=== PATIENT | female | born 1955 | race African-American/Black ===

== ENCOUNTER 2018-03-22 17:01 | Inpatient (IN) | payer MEDICARE ==
[~2018-03-22] VITALS: Ht 162.6 cm; Wt 194.0 kg
[~2018-03-22 17:01] MED LIST: ADVAIR DISK1 INH; ALBUTERO1; ALBUTERO1 IN; ALLOPURINOL100 MG PO; AMOXICILLIN875 MG PO; APRESOLINE25 MG/TAB PO; AUGMENTIN500TAB PO; AUGMENTIN875 MG PO; AUGMENTIN875TAB OR; AUGMENTIN875TAB PO; AVELOX400 MG PO; BENADRYL 50MG C50 MG PO; BENADRYL25 MG PO; CARDIZEM60 MG PO; CETIRIZ/PSE1 TAB PO; CIPRO500 MG OR; COLCHICINE0.6 MG PO; COLPROBENEMID500 MG PO; COMBIVENT IN; COMBIVENT INH; COMBIVENT RESPIMAT IN; DUONEB IN; FLORASTOR250 M1 PO; FLOVENT HFA44 MCG IN; FUROSEMIDE80 MG PO; K-DUR/KLOR-CON20 MEQ PO; KLOR-CON M2020 MEQ PO; LASIX 80 MG TAB80 M1 PO; LISINOPRIL20 MG OR; LORTAB 5/3255 MG PO; Levaquin OR; MEDDOSEPAK OR; MEDDOSEPAK PO; METOPROL TAR100 MG PO; NIFEDIPINE30 MG PO; OXY1; PEPCID20 MG PO; PLAVIX75 MG OR; PLAVIX75 MG PO; POT CHLORIDE20 ME3 PO; PREDNISONE10 MG PO; PREDNISONE20 MG PO; PROVENTIL0.083 % IN; ROBITUSSIN AC OR; ROBITUSSIN AC10 ML OR; ROBITUSSIN AC10 ML PO; SULFACET SOD10 % OU; ULTRAM50 M1 PO; ULTRAM50 MG PO; ZITHROMAX500 MG PO; ZPAK PO; ZYLOPRIM100 MG PO; ZYRTEC10 M3 PO
[2018-03-22] MEDS ORDERED: KLOR-CON M2020 MEQ PO (17:37)
[2018-03-22 17:38] LABS: HEMATOCRIT 45.4 % (37.0-47.0); HEMOGLOBIN 13.6 g/dl (12.0-16.0); IMMATURE GRANULOCYTES 0.3 % (0.0-1.0); NEUT# 8.42 thou/uL (2.00-7.15); RED BLOOD COUNT 4.54 mill/uL (4.20-5.60); RED CELL DISTRI WIDTH 18.1 % (11.5-15.5)
[2018-03-22] MEDS ORDERED: VENTOLIN HFA PO (17:39)
[2018-03-22] MEDS ORDERED: CLOPIDOGREL75 MG PO (17:40)
[2018-03-22] MEDS ORDERED: ATORVASTATIN CA10 MG PO (17:40)
[2018-03-22 17:54] LABS: MAGNESIUM 2.4 mg/dL (1.6-2.3)
[2018-03-22 18:31] LABS: MYOGLOBIN 36 ng/mL (0 - 62); TSH, 3RD GENERATION 4.09 uIU/mL (0.47 - 4.68)
[2018-03-22 18:40] LABS: ALBUMIN 3.3 g/dL (3.2-5.0); ALKALINE PHOSPHATASE 119 u/l (38-126); ANION GAP 14 (6-22 (CALC)); BILIRUBIN, TOTAL 0.6 mg/dL (0.0-1.4); BUN 25 mg/dL (8-23); BUN/CREATININE RATIO 25 (12-20 (CALC)); CARBON DIOXIDE 28 mmol/l (22-30); CHLORIDE 107 mmol/l (95-108); GFR 56 ML/MIN (>=60 (CALC)); GFR FOR AFR.AMER. > 60 ML/MIN (>=60 (CALC)); POTASSIUM 5.1 mmol/l (3.5-5.1); SGOT/AST 23 u/l (9-36); SGPT/ALT 36 u/l (11-66); SODIUM 144 mmol/l (137-146)
[2018-03-22 18:41] LABS: TOTAL PROTEIN 8.5 g/dL (6.3-8.2)
[2018-03-22 23:05] LABS: URINE BLOOD DIPSTICK SMALL (NEGATIVE); URINE COLOR YELLOW; URINE GLUCOSE - DIPSTICK NEGATIVE (NEGATIVE); URINE KETONE NEGATIVE (NEGATIVE); URINE LEUK ESTERASE NEGATIVE (Negative); URINE NITRITE - DIPSTICK NEGATIVE (Negative); URINE PROTEIN - DIPSTICK 30 mg/dL (NEG-TRACE); URINE SPECIFIC GRAVITY 1.025
[2018-03-22 23:08] LABS: URINE CLARITY CLOUDY
[2018-03-22 23:09] LABS: URINE BILIRUBIN - DIPSTICK NEGATIVE (NEGATIVE)
[2018-03-22 23:14] LABS: URINE RBC 0-2 RBC/hpf (0-5)
[2018-03-22 23:15] LABS: URINE AMORPH SEDIMENT FEW hpf (NONE-FEW); URINE BACTERIA MANY hpf; URINE SQUAMOUS EPITHELIAL CELL RARE EPI/hpf (0-FEW)
[2018-03-23] VITALS (21 sets, daily range): BP systolic 103–164; BP diastolic 51–71
[2018-03-24] VITALS (15 sets, daily range): BP systolic 100–151; BP diastolic 46–79
[2018-03-24 05:35] LABS: HEMATOCRIT 44.7 % (37.0-47.0); HEMOGLOBIN 13.1 g/dl (12.0-16.0); IMMATURE GRANULOCYTES 0.5 % (0.0-1.0); MEAN CELL VOLUME 102.3 fL CALC (80.0-100.0); MEAN CORPUSCULAR HGB CONC 29.3 g/L CALC (32.0-36.0); NEUT# 6.34 thou/uL (2.00-7.15); RED BLOOD COUNT 4.37 mill/uL (4.20-5.60); RED CELL DISTRI WIDTH 17.9 % (11.5-15.5)
[2018-03-24 05:53] LABS: ALBUMIN 2.7 g/dL (3.2-5.0); ALKALINE PHOSPHATASE 99 u/l (38-126); BILIRUBIN, TOTAL 0.6 mg/dL (0.0-1.4); BUN 18 mg/dL (8-23); BUN/CREATININE RATIO 25 (12-20 (CALC)); CARBON DIOXIDE 27 mmol/l (22-30); CHLORIDE 109 mmol/l (95-108); CREATININE 0.7 mg/dL (0.5-1.0); GFR > 60 ML/MIN (>=60 (CALC)); GFR FOR AFR.AMER. > 60 ML/MIN (>=60 (CALC)); SGOT/AST 19 u/l (9-36); SGPT/ALT 32 u/l (11-66); SODIUM 145 mmol/l (137-146); TOTAL PROTEIN 7.1 g/dL (6.3-8.2)
[2018-03-24 05:54] LABS: ANION GAP 14 (6-22 (CALC)); POTASSIUM 5.2 mmol/l (3.5-5.1)
[2018-03-25] VITALS (12 sets, daily range): BP systolic 91–143; BP diastolic 59–86
[2018-03-26] VITALS (17 sets, daily range): BP systolic 104–153; BP diastolic 53–87
[2018-03-26 05:35] LABS: HEMATOCRIT 39.1 % (37.0-47.0); HEMOGLOBIN 11.7 g/dl (12.0-16.0); IMMATURE GRANULOCYTES 0.2 % (0.0-1.0); MEAN CELL VOLUME 99.2 fL CALC (80.0-100.0); MEAN CORPUSCULAR HGB 29.7 pG CALC (26.0-32.0); MEAN CORPUSCULAR HGB CONC 29.9 g/L CALC (32.0-36.0); NEUT# 6.74 thou/uL (2.00-7.15); RED BLOOD COUNT 3.94 mill/uL (4.20-5.60); RED CELL DISTRI WIDTH 17.6 % (11.5-15.5)
[2018-03-26 05:41] LABS: ALBUMIN 2.8 g/dL (3.2-5.0); ALKALINE PHOSPHATASE 108 u/l (38-126); ANION GAP 15 (6-22 (CALC)); BILIRUBIN, TOTAL 0.4 mg/dL (0.0-1.4); BUN 15 mg/dL (8-23); BUN/CREATININE RATIO 22 (12-20 (CALC)); CARBON DIOXIDE 30 mmol/l (22-30); CHLORIDE 106 mmol/l (95-108); CREATININE 0.7 mg/dL (0.5-1.0); GFR > 60 ML/MIN (>=60 (CALC)); GFR FOR AFR.AMER. > 60 ML/MIN (>=60 (CALC)); POTASSIUM 4.9 mmol/l (3.5-5.1); SGOT/AST 18 u/l (9-36); SGPT/ALT 36 u/l (11-66); SODIUM 146 mmol/l (137-146); TOTAL PROTEIN 7.2 g/dL (6.3-8.2)
[2018-03-27] VITALS (20 sets, daily range): BP systolic 78–174; BP diastolic 44–93
[2018-03-27 05:35] LABS: HEMATOCRIT 39.2 % (37.0-47.0); HEMOGLOBIN 11.6 g/dl (12.0-16.0); IMMATURE GRANULOCYTES 0.4 % (0.0-1.0); MEAN CELL VOLUME 100.5 fL CALC (80.0-100.0); MEAN CORPUSCULAR HGB 29.7 pG CALC (26.0-32.0); MEAN CORPUSCULAR HGB CONC 29.6 g/L CALC (32.0-36.0); NEUT# 5.37 thou/uL (2.00-7.15); RED BLOOD COUNT 3.9 mill/uL (4.20-5.60); RED CELL DISTRI WIDTH 17.7 % (11.5-15.5)
[2018-03-27 05:52] LABS: ANION GAP 13 (6-22 (CALC)); BUN 15 mg/dL (8-23); BUN/CREATININE RATIO 21 (12-20 (CALC)); CARBON DIOXIDE 30 mmol/l (22-30); CHLORIDE 107 mmol/l (95-108); CREATININE 0.7 mg/dL (0.5-1.0); GFR > 60 ML/MIN (>=60 (CALC)); GFR FOR AFR.AMER. > 60 ML/MIN (>=60 (CALC)); POTASSIUM 4.9 mmol/l (3.5-5.1); SODIUM 144 mmol/l (137-146)
[2018-03-28] VITALS (17 sets, daily range): BP systolic 112–178; BP diastolic 66–90
[2018-03-29] VITALS (12 sets, daily range): BP systolic 130–181; BP diastolic 65–96
[2018-03-29 05:00] LABS: HEMATOCRIT 39.4 % (37.0-47.0); HEMOGLOBIN 11.6 g/dl (12.0-16.0); IMMATURE GRANULOCYTES 0.3 % (0.0-1.0); MEAN CELL VOLUME 100.8 fL CALC (80.0-100.0); MEAN CORPUSCULAR HGB 29.7 pG CALC (26.0-32.0); MEAN CORPUSCULAR HGB CONC 29.4 g/L CALC (32.0-36.0); NEUT# 4.68 thou/uL (2.00-7.15); RED BLOOD COUNT 3.91 mill/uL (4.20-5.60); RED CELL DISTRI WIDTH 17.9 % (11.5-15.5)
[2018-03-29 05:15] LABS: ALBUMIN 2.8 g/dL (3.2-5.0); ALKALINE PHOSPHATASE 105 u/l (38-126); ANION GAP 16 (6-22 (CALC)); BILIRUBIN, TOTAL 0.3 mg/dL (0.0-1.4); BUN 13 mg/dL (8-23); BUN/CREATININE RATIO 19 (12-20 (CALC)); CARBON DIOXIDE 31 mmol/l (22-30); CHLORIDE 105 mmol/l (95-108); CREATININE 0.7 mg/dL (0.5-1.0); GFR > 60 ML/MIN (>=60 (CALC)); GFR FOR AFR.AMER. > 60 ML/MIN (>=60 (CALC)); POTASSIUM 4.7 mmol/l (3.5-5.1); SGOT/AST 22 u/l (9-36); SGPT/ALT 38 u/l (11-66); SODIUM 147 mmol/l (137-146); TOTAL PROTEIN 7.3 g/dL (6.3-8.2)
[2018-03-30] VITALS (13 sets, daily range): BP systolic 121–178; BP diastolic 54–97
[2018-03-31] VITALS (12 sets, daily range): BP systolic 119–159; BP diastolic 60–92
[2018-04-01] VITALS (9 sets, daily range): BP systolic 143–176; BP diastolic 68–93
[2018-04-01 05:10] LABS: HEMATOCRIT 38.9 % (37.0-47.0); HEMOGLOBIN 11.7 g/dl (12.0-16.0); IMMATURE GRANULOCYTES 0.4 % (0.0-1.0); MEAN CELL VOLUME 99.2 fL CALC (80.0-100.0); MEAN CORPUSCULAR HGB 29.8 pG CALC (26.0-32.0); MEAN CORPUSCULAR HGB CONC 30.1 g/L CALC (32.0-36.0); NEUT# 5.45 thou/uL (2.00-7.15); RED BLOOD COUNT 3.92 mill/uL (4.20-5.60)
[2018-04-01 05:26] LABS: ALBUMIN 3.1 g/dL (3.2-5.0); ALKALINE PHOSPHATASE 109 u/l (38-126); ANION GAP 7 (6-22 (CALC)); BILIRUBIN, TOTAL 0.5 mg/dL (0.0-1.4); BUN 12 mg/dL (8-23); BUN/CREATININE RATIO 16 (12-20 (CALC)); CARBON DIOXIDE 34 mmol/l (22-30); CHLORIDE 104 mmol/l (95-108); CREATININE 0.7 mg/dL (0.5-1.0); GFR > 60 ML/MIN (>=60 (CALC)); GFR FOR AFR.AMER. > 60 ML/MIN (>=60 (CALC)); SGOT/AST 28 u/l (9-36); SGPT/ALT 40 u/l (11-66); SODIUM 141 mmol/l (137-146); TOTAL PROTEIN 7.6 g/dL (6.3-8.2)
[2018-04-02] VITALS (11 sets, daily range): BP systolic 135–181; BP diastolic 68–97
[2018-04-03] VITALS (12 sets, daily range): BP systolic 145–192; BP diastolic 72–116
[2018-04-03 10:44] LABS: C. DIFFICILE TOXIN A&B NEGATIVE (NEGATIVE)
[2018-04-04] VITALS (12 sets, daily range): BP systolic 116–166; BP diastolic 69–97
[2018-04-04 09:17] LABS: ANION GAP 10 (6-22 (CALC)); BUN 12 mg/dL (8-23); BUN/CREATININE RATIO 16 (12-20 (CALC)); CARBON DIOXIDE 36 mmol/l (22-30); CHLORIDE 100 mmol/l (95-108); CREATININE 0.8 mg/dL (0.5-1.0); GFR > 60 ML/MIN (>=60 (CALC)); GFR FOR AFR.AMER. > 60 ML/MIN (>=60 (CALC)); POTASSIUM 3.9 mmol/l (3.5-5.1); SODIUM 142 mmol/l (137-146)
[2018-04-04 09:48] LABS: HEMATOCRIT 40.5 % (37.0-47.0); HEMOGLOBIN 11.9 g/dl (12.0-16.0); IMMATURE GRANULOCYTES 1.2 % (0.0-1.0); MEAN CELL VOLUME 100.7 fL CALC (80.0-100.0); MEAN CORPUSCULAR HGB 29.6 pG CALC (26.0-32.0); MEAN CORPUSCULAR HGB CONC 29.4 g/L CALC (32.0-36.0); NEUT# 5.26 thou/uL (2.00-7.15); RED BLOOD COUNT 4.02 mill/uL (4.20-5.60); RED CELL DISTRI WIDTH 18.3 % (11.5-15.5)
[2018-04-04] MEDS ORDERED: COLPROBENEMID500 MG PO (12:32)
[2018-04-04] MEDS ORDERED: CARDIZEM60 MG PO (12:32)
[2018-04-04] MEDS ORDERED: ALLOPURINOL100 MG PO (12:33)
[2018-04-04] MEDS ORDERED: DAPTOMYCIN500 MG IV (12:34)
== END 2018-04-04 21:15 | DRG 191 ==
LOC: EDPENDDISDT → EDPENDDISTM → ED 17:01 → ED-I 22:30 → ED 23:20 → ICU 23:21
PROVIDERS: Emergency Medicine; ADMIT Internal Medicine Geriatric Medicine; ATTEND Internal Medicine Geriatric Medicine
PROC: 5A09457 Assistance with Respiratory Ventilation, 24-96 Consecutive Hours, Continuous Positive Airway Pressure (ICD-10-PCS; principal; 2018-03-23)
PROC: 02HV33Z Insertion of Infusion Device into Superior Vena Cava, Percutaneous Approach (ICD-10-PCS; 2018-03-25)
PROC: B518ZZA Fluoroscopy of Superior Vena Cava, Guidance (ICD-10-PCS; 2018-03-25)
DX: J44.1 Chronic obstructive pulmonary disease with (acute) exacerbation (principal); Z68.45 Body mass index [BMI] 70 or greater, adult; J96.11 Chronic respiratory failure with hypoxia; L97.822 Non-pressure chronic ulcer of other part of left lower leg with fat layer exposed; L97.812 Non-pressure chronic ulcer of other part of right lower leg with fat layer exposed; E66.01 Morbid (severe) obesity due to excess calories; G47.30 Sleep apnea, unspecified; I25.10 Atherosclerotic heart disease of native coronary artery without angina pectoris; I11.0 Hypertensive heart disease with heart failure; I50.9 Heart failure, unspecified; K21.9 Gastro-esophageal reflux disease without esophagitis; F41.9 Anxiety disorder, unspecified; E03.9 Hypothyroidism, unspecified; L89.311 Pressure ulcer of right buttock, stage 1; B95.62 Methicillin resistant Staphylococcus aureus infection as the cause of diseases classified elsewhere; R19.7 Diarrhea, unspecified; Z99.81 Dependence on supplemental oxygen
CPT/HCPCS: J0878; J3370

== ENCOUNTER 2018-10-21 15:29 | Inpatient (IN) | payer MEDICARE ==
[~2018-10-21] VITALS: Ht 162.6 cm; Wt 142.0 kg
[~2018-10-21 15:29] MED LIST changes: +ATORVASTATIN CA10 MG PO; +CLOPIDOGREL75 MG PO; +DAPTOMYCIN500 MG IV; +VENTOLIN HFA PO
--- NOTE | 2018-10-21 15:47 | NUR ---
TO ROOM VIA EMS.
--- NOTE | 2018-10-21 16:30 | NUR ---
PT AWARE OF BUSY ED AND WAIT TIME. PT REPORTS PAIN TO BUTTOCKS FROM BED SORE BEING TREATED BY HOME HEALTH CARE NURSE AND PAIN TO LLE.
--- NOTE | 2018-10-21 17:00 | NUR ---
PT INCONTINENT OF STOOL. PT CLEANED AND LINENS CHANGED. PT HAS APPROX STAGE 3 PRESSURE ULCER TO COCCYX. WET TO DRY DRESSING INTACT. ULCER APPROX 3 CM IN DIAMETER AND 2 CM DEEP. PICTURE TAKEN. PT REQUESTING SOMETHING FOR THE PAIN. NOTIFIED. CALL OSORIO WITHIN REACH.
[2018-10-21 17:33] LABS: URINE BLOOD DIPSTICK NEGATIVE (NEGATIVE); URINE COLOR YELLOW; URINE GLUCOSE - DIPSTICK NEGATIVE (NEGATIVE); URINE KETONE NEGATIVE (NEGATIVE); URINE LEUK ESTERASE NEGATIVE (NEGATIVE); URINE NITRITE - DIPSTICK NEGATIVE (Negative); URINE PROTEIN - DIPSTICK TRACE mg/dL (NEG-TRACE); URINE SPECIFIC GRAVITY >=1.030; URINE UROBILINOGEN - DIPSTICK 0.2 E.U./dL (0.2)
[2018-10-21 17:34] LABS: URINE BILIRUBIN - DIPSTICK NEGATIVE (NEGATIVE)
--- NOTE | 2018-10-21 17:40 | NUR ---
PER PT SHE TAKES TYLENOL AT HOME ON A REGUALR BASIS, SHE IS ALLERGIC TO THE "CODEINE IN TYLENOL 3".
[2018-10-21 17:41] LABS: HEMATOCRIT 37.8 % (37.0-47.0); HEMOGLOBIN 12.8 g/dl (12.0-16.0); IMMATURE GRANULOCYTES 0.9 % (0.0-5.0); MEAN CORPUSCULAR HGB CONC 33.9 g/L CALC (32.0-36.0); NEUT# 15.79 thou/uL (2.00-7.15); RED BLOOD COUNT 4.26 mill/uL (4.20-5.60); RED CELL DISTRI WIDTH 22.6 % (11.5-15.5)
[2018-10-21 17:48] LABS: MEAN CELL VOLUME 88.7 fL CALC (80.0-100.0)
[2018-10-21 18:22] LABS: ALBUMIN 3.4 g/dL (3.2-5.0); ALKALINE PHOSPHATASE 182 u/l (38-126); ANION GAP 15 (6-22 (CALC)); BILIRUBIN, TOTAL 0.4 mg/dL (0.0-1.4); BUN 31 mg/dL (8-23); BUN/CREATININE RATIO 27 (12-20 (CALC)); CARBON DIOXIDE 20 mmol/l (22-30); CHLORIDE 109 mmol/l (95-108); CREATININE 1.1 mg/dL (0.5-1.0); GFR 50 ML/MIN (>=60 (CALC)); GFR FOR AFR.AMER. > 60 ML/MIN (>=60 (CALC)); POTASSIUM 4.1 mmol/l (3.5-5.1); SGOT/AST 21 u/l (9-36); SODIUM 140 mmol/l (137-146); TOTAL PROTEIN 7.9 g/dL (6.3-8.2)
--- NOTE | 2018-10-21 18:30 | NUR ---
PT'S PAIN NOW 4/10 AND IS RESTING COMFORTABLY IN STRETCHER. PT AWARE OF PENDING RESULTS AND WAIT TIME. CALL OSORIO WITHIN REACH.
--- NOTE | 2018-10-21 20:04 | NUR ---
REPORT TO BREONNA/MED SURG
--- NOTE | 2018-10-21 20:05 | NUR ---
PT TO FLOOR VIA STRETCHER. MOVED WITH SLIDER TO BED. WITHOUT INCIDENT
[2018-10-21 20:12] VITALS: BP 104/42
--- NOTE | 2018-10-21 20:13 | NUR ---
PT ARRIVED TO FLOOR VIA STRETCHER. ALERT AND ORIENTED. NON-AMBULATORY PER PT DUE TO PREVIOUS STROKE. TRANSFERED FROM STRETCHER TO BED VIA 3 PERSON ASSIST. PRESSURE ULCER TO COCCYX. PT C/O GENERALIZED PAIN 05/31. WILL CONTACT PHYSICIAN FOR ORDERS. ORIENTED TO ROOM AND CALL LIGHT SYSTEM. IV SITE APPEARS HEALTHY. IV VANCOMYCIN INFUSING WITHOUT DIFFICULTY AT THIS TIME. DISCUSSED POC. CALL LIGHT WITHIN REACH. WILL CONTINUE TO MONITOR.
--- NOTE | 2018-10-21 21:34 | NUR ---
RECIEVED TELEPHONE ORDER FOR PRN IV DILAUDID 1MG FOR SEVERE PAIN. PT MEDICATED AT THIS TIME. WILL CONTINUE TO MONITOR.
--- NOTE | 2018-10-22 01:15 | NUR ---
PT RESTING IN BED WITH EYES CLOSED. NO S/S OF PAIN NOTED. PT BEING TURNED AND REPOSITIONED Q2H TOLERATED. CALL LIGHT WITHIN REACH. WILL CONTINUE TO MONITOR.
--- NOTE | 2018-10-22 02:53 | NUR ---
PT REPOSITIONED IN BED. MEDICATED FOR GENERALIZED PAIN 03/31 WITH IV DILAUDID AT THIS TIME. CALL LIGHT WITHIN REACH. WILL CONTINUE TO MONITOR.
[2018-10-22 04:50] VITALS: BP 124/53
--- NOTE | 2018-10-22 05:00 | NUR ---
PT REPOSITIONED WITH PILLOWS AT THIS TIME. PT DENIES ANY PAIN OR DISCOMFORT. CALL LIGHT WITHIN REACH. WILL CONTINUE TO MONITOR.
[2018-10-22 05:17] LABS: HEMATOCRIT 36.7 % (37.0-47.0); HEMOGLOBIN 12.2 g/dl (12.0-16.0); IMMATURE GRANULOCYTES 0.8 % (0.0-5.0); MEAN CELL VOLUME 89.7 fL CALC (80.0-100.0); MEAN CORPUSCULAR HGB 29.8 pG CALC (26.0-32.0); MEAN CORPUSCULAR HGB CONC 33.2 g/L CALC (32.0-36.0); NEUT# 14.06 thou/uL (2.00-7.15); RED BLOOD COUNT 4.09 mill/uL (4.20-5.60); RED CELL DISTRI WIDTH 21.7 % (11.5-15.5)
[2018-10-22 05:45] LABS: ALKALINE PHOSPHATASE 157 u/l (38-126); ANION GAP 14 (6-22 (CALC)); BILIRUBIN, TOTAL 0.2 mg/dL (0.0-1.4); BUN 28 mg/dL (8-23); BUN/CREATININE RATIO 29 (12-20 (CALC)); CARBON DIOXIDE 21 mmol/l (22-30); CHLORIDE 109 mmol/l (95-108); GFR 56 ML/MIN (>=60 (CALC)); GFR FOR AFR.AMER. > 60 ML/MIN (>=60 (CALC)); POTASSIUM 4.1 mmol/l (3.5-5.1); SGOT/AST 16 u/l (9-36); SODIUM 140 mmol/l (137-146); TOTAL PROTEIN 6.6 g/dL (6.3-8.2)
[2018-10-22 05:50] LABS: ALBUMIN 2.7 g/dL (3.2-5.0)
--- NOTE | 2018-10-22 08:21 | NUR ---
PT RESTING IN BED, C/O PAIN 9/10 TO HER L EXTREMITY, MEDICATED WITH DILAUDID. DISCUSSED POC, RESP EVEN AND UNLABORED. ALERT AND ORIENTED X3, ASSESSMENT COMPLETED AT THIS TIME, CALL LIGHT IN REACH,CONTINUE TO MONITOR.
[2018-10-22 08:23] VITALS: BP 116/64
--- NOTE | 2018-10-22 08:48 | NUR ---
Pharmacokinetic dosing service Date: 10/22/18 Time: 0845 Objective: Patient: Shalonda Medina Floor: [id number] Age: 62 yo Serum creatinine: 1.0 mg/dL Height: 64 Inches Weight (kg): 123 Diagnosis: Sepsis Cultures and sensitivities: BC pending Assessment: TBW (kg): 123 IBW (kg): 54.70 Dosing wt(kg): 82 Estimated Creatinine clearance (ml/min): 61.2 CRCL method: Cockcroft and Gault using adjusted body weight Drug selected: Vancomycin Vd (liters): 61.5 (factor used: 0.75 L/kg) Karthik (hr-1): 0.055 Half life (hrs): 12.60 Recommended dose: 1000 mg Interval: 12 hrs Infusion time (hrs): 2.0 Predicted trough (mcg/mL): 18.40 Recommendations: Give Vancomycin 1000 mg q 12 hrs with an expected Ctrough of 18.40 mcg/ml Vanco trough to be drawn on 10/23/18 @ 2130, 30 minutes prior to 2200 dose. Thank you for the consult, will continue to follow.
--- NOTE | 2018-10-22 09:32 | NUR ---
TO BEDSIDE, PT POSITIONED TO HER SIDE TO ALLOW MD TO ASSESS WOUND. WOUND CULTURE OBTAINED AT THIS TIME. CALL LIGHT IN REACH,CONTINUE TO MONITOR.
--- NOTE | 2018-10-22 13:45 | NUR ---
OFFERED PT MOM AND PRUNE JUICE, PT DECLINED AND STATED SHE WILL ONLY TAKE THE PRUNE JUICE WARMED UP. CALL LIGHT IN REACH,CONTINUE TO MONITOR.
--- NOTE | 2018-10-22 14:35 | NUR ---
AIR MATTRESS ARRIVED,MATTRESS PLACED ON NEWER MODEL BED AND THEN PT TRANSFERRED TO AIR MATTRESS. PT TOLERATED WELL. REPOSITIONED AT THIS TIME. FAMILY AT BEDSIDE, CALL LIGHT IN REACH, CONTINUE TO MONITOR.
[2018-10-22 15:00] VITALS: BP 120/66
--- NOTE | 2018-10-22 16:27 | NUR ---
PT RESTING IN BED WATCHING TV, DISCUSSED DRESSING CHANGE, PT IN AGREEMENT. POSITIONED PT TO HER R SIDE, CLEANSED WOUND WITH NS THEN 1 4X4 WET GAUZE PACKED INTO WOUND. PT TOLERATED WELL, COVERED WITH DUODERM. WILL MEDICATE ONCE MEDICATION DUE, CALL LIGHT IN REACH,CONTINUE TO MONITOR.
--- NOTE | 2018-10-22 17:13 | NUR ---
PT MEDICATED WITH DILAUDID 1MG IVP FOR BLE PAIN RATING 9/10 ON THE PAIN SCALE.WILL MONITOR FOR EFFECTIVENESS.
[2018-10-22 19:05] VITALS: BP 138/64
--- NOTE | 2018-10-22 20:15 | NUR ---
ASSESSMENT IS COMPLETED: IV SITE IS FREE FROM REDNESS OR EDEMA. HR IS REG,PULSES ARE STRONG X4, ABD IS SOFT WITH ACTIVE BS. BREATH SOUNDS ARE CLEAR, BILATERALLY, CONTINUE TO OBSERVE AND MONITOR.
--- NOTE | 2018-10-23 00:45 | NUR ---
PT IS RESTING IN BED WITH Q2H TURNS. IV SITE IS FREE FROM REDNESS OR EDEMA. CONTINUE TO OSBERVE AND MONITOR.
--- NOTE | 2018-10-23 03:33 | NUR ---
PT IS INCONTINENT OF URINE. PAINFUL TO THE LEFT LEG TO TURN PLACED A PUREWICK IN PLACE .
[2018-10-23 04:08] VITALS: BP 146/55
--- NOTE | 2018-10-23 04:45 | NUR ---
PT IS RESTING IN BED WITH NO DISTRESS NOTED. IV SITE IS FREE FROM REDNESS OR EDEMA.
--- NOTE | 2018-10-23 07:20 | NUR ---
PT REPORT RECIEVED FROM BRIAN HINDS. PT SLEEPING. NO S/S OF DISTRESS. WILL CONTINUE TO MONITOR.
[2018-10-23 08:30] LABS: HEMATOCRIT 39.7 % (37.0-47.0); HEMOGLOBIN 12.9 g/dl (12.0-16.0); IMMATURE GRANULOCYTES 1.1 % (0.0-5.0); MEAN CELL VOLUME 91.5 fL CALC (80.0-100.0); MEAN CORPUSCULAR HGB 29.7 pG CALC (26.0-32.0); MEAN CORPUSCULAR HGB CONC 32.5 g/L CALC (32.0-36.0); NEUT# 12.54 thou/uL (2.00-7.15); RED BLOOD COUNT 4.34 mill/uL (4.20-5.60); RED CELL DISTRI WIDTH 22.1 % (11.5-15.5)
--- NOTE | 2018-10-23 08:30 | NUR ---
DR. CHATTERJEE FROM WOUND [facility]ARE IN TO SEE PT.
[2018-10-23 08:33] VITALS: BP 134/62
--- NOTE | 2018-10-23 08:33 | NUR ---
PT A/O X3. SPEECH IS CLEAR. RESP EVEN AND UNLABORED. UPPER LOBS CLEAR, LOWER LOBES DIMINISHED. BOWEL SOUNDS ACTIVE X4. STRONG RADIAL PULSES. WEAK PEDAL PULSES. #22 RH D5 1/2 NS @75. SITE APPEARS HEALTHY. PT C/O ACHING PAIN TO RT LEG. MEDICATED W/ 1MG DILAUDID IV. REPOSITIONED FOR COMFORT. PT DRESSING TO COCCYX, CDI. PT DENIES ANY FURTHER NEEDS. POC DISCUSSED. SAFETY PRECAUTIONS IN PLACE. AIR MATTRESS. CONTACT PRECAUTIONS. CALL LIGHT IN REACH. WILL CONTINUE TO MONITOR.
--- NOTE | 2018-10-23 08:54 | NUR ---
I SPOKE WITH MOODY FROM THE W[facility]ARE CLIN[facility]. SHE STATED THAT THEY HAD ALREADY BEEN NOTIFIED YESTERDAY ABOUT THE CONSULTATION AND THAT THE DOCTOR WILL BE OVER TODAY TO SEE THE PATIENT. CONSULTATION WAS NOTIFIED @ 0854 AM
--- NOTE | 2018-10-23 09:00 | NUR ---
PT DRESSING TO COCCYX REMOVED. DECUB ULCER. WOUND HAS TUNNELING, MODERATE AMOUND OF BLOODY DRAINAGE VISIBLE. CLEANED W/ SALINE. 4X4 GUAZE SOAKED, APPLIED INTO WOUND. DUODERM APPLIED. WILL REMOVE DRESSING WHEN ALL SUPPLIES FOR WOUND VAC IS AVAILABLE.
--- NOTE | 2018-10-23 09:00 | NUR ---
THE WOUND CARE DOCTOR CAME TO THE FLOOR TO SEE THE PATIENT AT 0900 AM.
[2018-10-23 09:01] LABS: ALBUMIN 2.8 g/dL (3.2-5.0); ALKALINE PHOSPHATASE 167 u/l (38-126); ANION GAP 15 (6-22 (CALC)); BILIRUBIN, TOTAL 0.3 mg/dL (0.0-1.4); BUN 21 mg/dL (8-23); BUN/CREATININE RATIO 30 (12-20 (CALC)); CARBON DIOXIDE 22 mmol/l (22-30); CHLORIDE 106 mmol/l (95-108); CREATININE 0.7 mg/dL (0.5-1.0); GFR > 60 ML/MIN (>=60 (CALC)); GFR FOR AFR.AMER. > 60 ML/MIN (>=60 (CALC)); POTASSIUM 4.1 mmol/l (3.5-5.1); SGOT/AST 18 u/l (9-36); SODIUM 138 mmol/l (137-146); TOTAL PROTEIN 6.8 g/dL (6.3-8.2)
--- NOTE | 2018-10-23 12:11 | NUR ---
RESP EVEN AND UNLABORED. PT RESTING AT THIS TIME. NO C/O PAIN OR NEEDS. CALL LIGHT IN REACH. WILL CONTINUE TO MONITOR.
--- NOTE | 2018-10-23 13:49 | NUR ---
I SPOKE WITH EDISON FROM [facility]. THE WOUND VAC WAS CONFIRMED. SPOKE WITH HIM @[facility]. REF #[id number] SERIAL #[id number]
--- NOTE | 2018-10-23 14:30 | NUR ---
BRIAN HANNA FROM [facility] IN TO APPLY WOUND VAC TO PT BUTTOCK.
[2018-10-23 16:00] VITALS: BP 137/67
--- NOTE | 2018-10-23 16:04 | NUR ---
PT C/O LLE ACHING PAIN. 8 OUT OF 10 ON PAIN SCALE. MEDICATED W/ 1MG DILAUDID IV. RELAXATION TECHNIQUES IN PLACE. PT DENIES ANY FURTHER NEEDS. CALL LIGHT IN REACH. WILL CONTINUE TO MONITOR.
[2018-10-23 19:31] VITALS: BP 155/74
--- NOTE | 2018-10-23 20:11 | NUR ---
ASSESSMENT IS COMPLETED: IV SITE IS FREE FROM REDNESS OR EDMEA. HR IS REG,PULSES ARE STRONG X4, ABD IS SOFT WITH ACTIVE BS., BREATH SOUNDS ARE CLEAR, BILATERALLY. NO C/O SOB, WOUND VAC IN PLACE ON BUTTOCKS AREA. COYNE DRAINING YELLOW URINE./ CONTINUE TO OSBERVE AND MONITOR FAMILY IN THE ROOM.
--- NOTE | 2018-10-23 20:51 | NUR ---
TROUGH IS HIGH 32 UNABLE TO GIVE VANCO FOR TONIGHTS DOSE.
--- NOTE | 2018-10-24 00:30 | NUR ---
PT IS RESTING IN BED WITH FAMILY IN THE ROOM. IV SITE IS FREE FROM REDNESS OR EDEMA.
--- NOTE | 2018-10-24 04:05 | NUR ---
PT IS RESTING IN BED WITH NO DISTRESS NOTED. IV SITE IS FREE FROM REDNESS OR EDEMA CONTINUE TO OBSERVE AND MONITOR. FAMILY IN THE ROOM.
[2018-10-24 05:06] VITALS: BP 144/66
[2018-10-24 05:37] LABS: HEMOGLOBIN 11.1 g/dl (12.0-16.0); IMMATURE GRANULOCYTES 1.1 % (0.0-5.0); MEAN CELL VOLUME 89.8 fL CALC (80.0-100.0); MEAN CORPUSCULAR HGB 29.7 pG CALC (26.0-32.0); NEUT# 11.45 thou/uL (2.00-7.15); RED BLOOD COUNT 3.74 mill/uL (4.20-5.60); RED CELL DISTRI WIDTH 21.3 % (11.5-15.5)
[2018-10-24 05:44] LABS: ANION GAP 13 (6-22 (CALC)); BUN 17 mg/dL (8-23); BUN/CREATININE RATIO 27 (12-20 (CALC)); CARBON DIOXIDE 24 mmol/l (22-30); CHLORIDE 104 mmol/l (95-108); CREATININE 0.6 mg/dL (0.5-1.0); GFR > 60 ML/MIN (>=60 (CALC)); GFR FOR AFR.AMER. > 60 ML/MIN (>=60 (CALC)); POTASSIUM 4.4 mmol/l (3.5-5.1); SODIUM 136 mmol/l (137-146)
[2018-10-24 05:46] LABS: HEMATOCRIT 33.6 % (37.0-47.0)
[2018-10-24 07:53] VITALS: BP 139/56
--- NOTE | 2018-10-24 07:53 | NUR ---
PT RESTING IN BED ON AIR MATTRESS, PT ALERT AND ORIENTED X3. NO EDEMA. WOUND VAC TO BUTTOCK CONTINUOUS SUCTION AT 150 NO LEAKS NOTED. COYNE DRAINING TO GRAVITY, LEG STRAP IN PLACE. PT IS A Q2H TURN, DISCUSSED POC, PT IN AGREEMENT. SISTER AT BEDSIDE. CALL LIGHT IN REACH,CONTINUE TO MONITOR.
--- NOTE | 2018-10-24 08:30 | NUR ---
NEW ORDERS FOR PICC LINE PT INFORMED AND AGREED FOR PLACEMENT, CONSET SIGNED. PT WANTS TO GO DOWN IN HER BED.
--- NOTE | 2018-10-24 08:46 | NUR ---
PT MEDICATED FOR PAIN 07/01 PRIOR TO BE TAKEN DOWN TO RADIOLOGY.
--- NOTE | 2018-10-24 09:06 | NUR ---
PT BEING TAKEN DOWN IN HER BED WITH AIR MATTRESS DOWN TO RADIOLOGY FOR PICC LINE INSERTION. PT STABLE, SPOKE WITH SON AND INFORMED SON TO CALL DR MARRERO AT HIS OFFICE TO SPEAK WITH HIM ABOUT PLANS FOR PLACEMENT. CONTINUE TO MONITOR.
--- NOTE | 2018-10-24 09:53 | NUR ---
PT RETURNED FROM RADIOLOGY FOR PICC LINE. SON AT BEDSIDE HE STATES HE CALLED 'S OFFICE AND SPOKE TO HIM REGARDING HIS MOTHERS PLAN OF CARE. PER IMAGING REPORT, PICC ABLE FOR IMMEDIATE USE. DOUBLE LUMEN PICC, BOTH FLUSHED AND GOOD BLOOD RETURN. ARM CIRCUM 42CM. SITE APPEARS WELL, IV FLUIDS CONTINUED TO PICC LINE AND IV SITE REMOVED FROM LAC. CALL LIGHT IN REACH,CONTINUE TO MONITOR.
--- NOTE | 2018-10-24 14:15 | NUR ---
PT MEDICATED FOR PAIN, REPOSITIONED IN BED, CALL LIGHT IN REACH,CONTINUE TO MONITOR.
--- NOTE | 2018-10-24 15:31 | NUR ---
Pt seen this this pm for treatment, she continues to c/o L knee pain. Pt performed AROM to UEs in supine (resistive ex not appropriate due to picc line). A/AAROM to RLEs with increased ROM and tolerance noted. LLE pt able to wiggle toes but in too much pain to do any active or tolerate PROM. Pt positioned in bed and left with call bello in reach, family just in to visit.
[2018-10-24 15:47] VITALS: BP 120/60
[2018-10-24 19:52] VITALS: BP 142/72
--- NOTE | 2018-10-24 20:53 | NUR ---
pt resting in bed. no distress noted. pt c/o pain in coccyx area. pt a/ox3. able to voice needs. ROSALBA picc patent. flushed without difficulity. drg clean dry and intact. scd in place. poc discussed. pt voiced understanding. pain med with be administered at schuduled time.encouraged to reposition to offset pressure. pt agreed will continue to monitor.
--- NOTE | 2018-10-25 02:40 | NUR ---
PT RESTING IN BED. C/O PAIN WHEN TURNT BY OPERATIONAL INTELLIGENCE ANALYST. DILAUID ADMINISTERED.FAMILY AT BEDSIDE. NO OTHER CONCERNS AT THIS MOMENT. WILL FOLLOW UP FOR EFFECTRIVENESS.
[2018-10-25 04:28] VITALS: BP 141/64
--- NOTE | 2018-10-25 05:18 | NUR ---
pt resting in bed with eyes closed. pt iv patnet and drg in place. pt moaning d/t pain in buttucks. pt repositioned to offset pressure on buttucks.family at bedside. educated pt on next scheduled pain med. pt voiced understanding. will continue to monitor.
--- NOTE | 2018-10-25 07:07 | NUR ---
pt arm measure after picc placement. arm measured 42cm. no change from previous shift. no drainage in wound vac noted. pt turn q2hrs through the shift.
--- NOTE | 2018-10-25 07:47 | NUR ---
PT RESTING IN BED, GROANING IN PAIN, NO SIGNS OF DISTRESS NOTED, RESP EVEN AND UNLABORED. C/O PAIN 05/31, MEDICATED PER DEC, VSS STABLE. WOUND VAC TO WOUND ON BUTTOCK CONTINUOUS SUCTION 150. COYNE DRAINING TO GRAVITY STAT LOCK IN PLACE TO R THIGH. PT HAS A DL POWER PICC TO ROSALBA, ARM CIRCUM. 47CM NO REDNESS OR IRRITATION TO SITE, INFUSING WELL, PT DENIES PAIN TO SITE. ASSESSMENT COMPLETED, CALL LIGHT IN REACH,CONTINUE TO MONITOR.
[2018-10-25 07:49] VITALS: BP 134/70
--- NOTE | 2018-10-25 09:00 | NUR ---
SPOKE AND DISCUSSED POC WITH PT AND SISTER. NEW ORDERS FOR KPAD ON HEAT TO L KNEE FOR COMFORT. DISCUSSED KPAD AND SET UP WITH PT, SHE AGREES. KPAD APPLIED TO L KNEE. PT HAS NOT HAD A BM SINCE 10/22/18 MEDICATED WITH MOM IN WARM PRUNE JUICE. PT DRANK ENTIRE CONTENTS. CALL LIGHT IN REACH,CONTINUE TO MONITOR.
--- NOTE | 2018-10-25 11:18 | NUR ---
PT REPOSITIONED IN BED, NO SIGNS OF DISTRESS NOTED, RESP EVEN AND UNLABORED. CALL LIGHT IN REACH,CONTINUE TO MONITOR.
--- NOTE | 2018-10-25 12:56 | NUR ---
PT MEDICATED FOR PAIN TO BUTTOCK AND L KNEE 05/31, DILAUDID 1MG GIVEN. FAMILY AT BEDSIDE. CALL LIGHT IN REACH,CONTINUE TO MONITOR.
--- NOTE | 2018-10-25 15:16 | NUR ---
The patient is lying supine in the bed. She worked on initiating rolling STS. She is limited by c/o pain in the left knee. I attempted to perfrom ROM on the knee - she is limited by pain and anxiety. I did talk to her about the importance of turning and moving. She insists that nursing is helping her STS every 2 hours. Her actual knee ROM is 40 to 65 limited by pain and severe OA. She is a good SNF candidate to work on bed mobility and decrease burden of care
[2018-10-25 15:50] VITALS: BP 147/99
--- NOTE | 2018-10-25 18:00 | NUR ---
PT MEDICATED FOR PAIN PRIOR TO DRESSING CHANGE. CALL LIGHT IN REACH,CONTINUE TO MONITOR.
--- NOTE | 2018-10-25 18:20 | NUR ---
DISCUSSED DRESSING CHANGE WITH PT, VERBALIZED UNDERSTANDING. OLD DRESSING REMOVED. CLEANSED WOUND WITH NS. NOTED SMALL TIP OF SACRAL BONE CAN BE SEEN. HYDROGEL APPLIED TO AREA, COVERED WITH SMALL ADAPTIC. SPONGE INSERTED, AND SECURED WOUND VAC APPLIED. NO ISSUES WITH WOUND VAC, CONTINUOUS SUCTION TO 150. PT REPOSITIONED IN BED. CALL LIGHT IN REACH,CONTINUE TO MONITOR.
--- NOTE | 2018-10-25 19:00 | NUR ---
RECIVED REPORT FROM DAY NURSE. PT RESTING IN BED. SISTER AT BEDSIDE. NO NEEDS AT THIS TIME. CALL OSORIO IN REACH. WILL CONTINUE TO MONITOR.
[2018-10-25 19:16] VITALS: BP 136/67
--- NOTE | 2018-10-25 21:00 | NUR ---
PT RESTING IN BED DOING HER PUZZLES WITH SISTER AT BEDSIDE. PT IS OBESE AND UNABLE TO TURN HERSELF. Q2 TURN ALARM IN PLACE. ASSESSMENT COMPLETED AT THIS TIME(SEE INTERVENTIONS) LUNG SOUNDS CLEAR/DIMINISHED, HR REGULAR, BOWEL SOUNDS ACTIVE, PT SKIN IS DRY AND FLAKEY, WOUND VAC TO COXXYX IN PLACE AND ON CONT. SUCTION @ 150. NO SWELLING OR EDEMA NOTED. PICC FLUSHES WELL, DRESSING INTACT. SCDS IN PLACE. PT C/O PAIN. REPOSTITIONED AT THIS TIME. ALL NEEDS MET. CALL OSORIO IN REACH. WILL CONTINUE TO MONITOR.
--- NOTE | 2018-10-26 | NUR ---
pt resting quietly in bed with eyes closed,sister at bedside, turned at this time. call bello in reach. will continue to monitor.
[2018-10-26 00:27] VITALS: BP 147/76
--- NOTE | 2018-10-26 01:24 | NUR ---
PT YELLING OUT, WHEN ASKED WHAT WAS WRONG SHE TOLD THE AID SHE WAS HEARING OWLS, FOLLOW UP MANAGER ENTERED ROOM THERE WAS A BEEPING COMING FROM WOUND VAC, PRESSURE WAS LOW. PT WAS ROLLED TO SIDE TO INSPECT WOUND VAC DRESSING SUCTION WAS LOST REINFORCEMENT TRIED BUT DID NOT WORK. NEW WOUND VAC DRESSING APPLIED WITH ASSISTANCE OF MIKAYLA FREEMAN AND BREONNA TORRES. PT TOLERATED OK. MEDICATED FOR PAIN AT THIS TIME. AND SETTLED BACK INTO BED. WOUND VAC CONTINUING AT CONTINUOUS SUCTION @150. CALL OSORIO IN REACH. WILL CONTINUE TO MONITOR.
--- NOTE | 2018-10-26 04:00 | NUR ---
PT RESTING IN BED WITH EYES CLOSED. NO S/S OF DISTRESS NOTED. WOUND VAC SUCTIONING @150, COYNE DRAINING TO GRAVITY. CALL OSORIO IN REACH. WILL CONTINUE TO MONITOR.
[2018-10-26 04:52] VITALS: BP 143/73
[2018-10-26 08:00] VITALS: BP 127/64
--- NOTE | 2018-10-26 08:10 | NUR ---
MEDICATED PT WITH TYLENOL FOR PAIN SEE EMAR. ASSESSMENT DONE. LUNGS SOUND CLEAR/DIMINISHED. RU PICC INFUSING WELL. PT IS A&O X3. COYNE IS PATENT WITH YELLOW URINE. AIR MATTERSS IN PLACE. WOUND VAC IN PLACE WITH SUCTION. SAFETY PRECAUTIONS REINFORCED AND CALL LIGHT IN REACH. SISTER IN ROOM.
--- NOTE | 2018-10-26 11:51 | NUR ---
PT IS SETUP FOR LUNCH WITH NO S/S OF DISTRESS NOTED. PT STATED PAIN 04/30 . PT REFUSED PAIN MEDICATION AT THIS TIME. SISTER IN ROOM. CALL LIGHT IN REACH.
--- NOTE | 2018-10-26 12:34 | NUR ---
CALLED DR. MARRERO RE: PT HAVING NAUSEA . ORDERS RECEIVED.
[2018-10-26 15:10] VITALS: BP 124/50
--- NOTE | 2018-10-26 16:05 | NUR ---
PT IS RESTING IN BED WITH NO S/S OF DISTRESS NOTED. COYNE IS PATENT WITH REEMA URINE. WOUND VAC IN PLACE IN BUTTOCKS AT SUCTION 150. CALL LIGHT IN REACH.
--- NOTE | 2018-10-26 19:30 | NUR ---
PATIENT RESTING IN BED AT THIS TIME POSITIONED ON RIGHT SIDE. PATIENT IS AWAKE ALERT AND ORIENTEDX3. PATIENT PICC RIGHT UPPER ARM INTACT AND HAS D51/2NS PATENT AND INFUSING AT 30CC/HR. SITE APPEARS HEALTHY AT THIS TIME. COYNE PATENT AND DRAINING YELLOW URINE. WOUND VAC INTACT TO SACRAL WOUND WITH SCANT DRAINAGE-SUCTION IS AT 150MMHG. PATIENT WITH NO COMPLAINTS AT THIS TIME. CALL LIGHT IN REACH. WILL CONT TO MONITOR.
[2018-10-26 19:51] VITALS: BP 125/62
--- NOTE | 2018-10-26 21:30 | NUR ---
PATIENT RESTING IN BED. C/O BLE AND BUTTOCKS PAIN. MEDICATED WITH DILAUDID 1MG IVP FOR PAIN. MAXIPIME INFUSING ORDERED. CALL LIGHT IN REACH. WILL CONT TO MONITOR.
--- NOTE | 2018-10-26 23:00 | NUR ---
PATIENT TURNED AND REPOSITIONED ON LEFT SIDE. PATIENT MOANING OUT WHEN MOVED. CONT TO COMPLAIN OF BLE PAIN-SCD'S IN PLACE. BLE ELEVATED WITH PILLOWS. CALL LIGHT IN REACH. WILL CONT TO MONITOR.
[2018-10-27 04:52] VITALS: BP 131/43
[2018-10-27 05:08] LABS: HEMATOCRIT 29.5 % (37.0-47.0); HEMOGLOBIN 9.8 g/dl (12.0-16.0); IMMATURE GRANULOCYTES 1.4 % (0.0-5.0); MEAN CELL VOLUME 88.6 fL CALC (80.0-100.0); MEAN CORPUSCULAR HGB 29.4 pG CALC (26.0-32.0); MEAN CORPUSCULAR HGB CONC 33.2 g/L CALC (32.0-36.0); NEUT# 11.43 thou/uL (2.00-7.15); RED BLOOD COUNT 3.33 mill/uL (4.20-5.60); RED CELL DISTRI WIDTH 20.5 % (11.5-15.5)
[2018-10-27 05:15] LABS: ANION GAP 11 (6-22 (CALC)); BUN 13 mg/dL (8-23); BUN/CREATININE RATIO 23 (12-20 (CALC)); CARBON DIOXIDE 25 mmol/l (22-30); CHLORIDE 104 mmol/l (95-108); CREATININE 0.6 mg/dL (0.5-1.0); GFR > 60 ML/MIN (>=60 (CALC)); GFR FOR AFR.AMER. > 60 ML/MIN (>=60 (CALC)); POTASSIUM 3.9 mmol/l (3.5-5.1); SODIUM 136 mmol/l (137-146)
--- NOTE | 2018-10-27 07:00 | NUR ---
REPORT RECEIVED FROM MARYCHUY. PT IS RESTING IN BED WITH NO S/S OF DISTRESS NOTED. PT DENIES NEEDS AT THIS TIME. CALL LIGHT IN REACH.
[2018-10-27 08:40] VITALS: BP 130/82
--- NOTE | 2018-10-27 09:23 | NUR ---
NOTIFIED DR. MARRERO THAT PT HAS NOT HAD BM FOR A FEW DAYS. ORDER RECEIVED. MEDICATED PT WITH MAGNESIUM CITRATE. HAD MEDICATED PT WITH DILAUDID FOR HER LEG PAIN 04/30. ASSESSMENT DONE. LUNG SOUND DIMINISHED. PT IS A&O X3. RU PICC INFUSING WELL. SCD IN PLACE. WOUND VAC IN PLACE/SUCTION AT 150. COYNE IS PATENT WITH REEMA URINE. AIR MATTERSS IN PLACE. PT DENIES ANY OTHER NEEDS AT THIS TIME. CALL LIGHT IN REACH.
--- NOTE | 2018-10-27 12:00 | NUR ---
PT IS EATING HER LUNCH WITH NO S/S OF DISTRESS NOTED. PT STATED PAIN IS 6/10 BUT DENIES PAIN MEDICATION AT THIS TIME. CALL LIGHT IN REACH.
--- NOTE | 2018-10-27 13:23 | NUR ---
PT HAD A LARGE BM IN BED AND TANI CARE DONE. POORNIMA ASSISTED WITH WOUND VAC CHANGE DUE TO IT HAD BM. PICTURE TAKEN AND PT TOLERATED. TURN PT TO RIGHT SIDE. CALL LIGHT IN REACH.
[2018-10-27 15:30] VITALS: BP 132/65
--- NOTE | 2018-10-27 15:50 | NUR ---
MEDICATED PT WITH TYLENOL FOR PAIN IN BUTTOCKS. SCD IN PLACE. WOUND VAC IN PLACE SUCTION 150. PT DENIES ANY OTHER NEEDS AT THIS TIME. CALL LIGHT IN REACH.
--- NOTE | 2018-10-27 19:00 | NUR ---
RECEIVED REPORT FROM DAY NURSE. PT RESTING IN BED WITH EYES CLOSED. NO DISTRESS NOTED. CALL OSORIO IN REACH. WILL CONTINUE TO MONITOR.
[2018-10-27 19:35] VITALS: BP 109/57
--- NOTE | 2018-10-27 20:40 | NUR ---
PT RESTING QUIETLY IN BED. NO NEEDS AT THIS TIME. ASSESMENT COMPLETED AT THIS TIME(SEE INTERVENTIONS) LUNG SOUNDS NERY/DIMINISHED, HR NORMAL, BOWEL SOUNDS ACTIVE. NO SWELLING OR EDEMA. WOUND VAC IN PLACE, NO LEAKS @150 CONT. SUCTION. COYNE DRAINING CLEAR REEMA URINE. BANDAID TO LEFT UPPER ABD REMOVED, HEALING PEG TUBE WOUND, PEREZ DRAINAGE NOTED, CLEANED AND LEFT CALLIE. PT VOCING NO COMPLAINTS AT THIS TIME. CALL OSORIO IN REACH. WILL CONTINUE TO MONITOR.
--- NOTE | 2018-10-28 | NUR ---
PT APPEARS TO BE ASLEEP AT THIS TIME. NO S/S OF DISTRESS NOTED. CALL OSORIO IN REACH. WILL CONTINUE TO MONITOR.
--- NOTE | 2018-10-28 04:00 | NUR ---
PT RESTING QUIETLY IN BED. COYNE DRAINING TO GRAVITY CLEAR REEMA URINE. IV INFUSING WELL, WOUND VAC IN PLACE; NO LEAKS. CALL OSORIO IN REACH. WILL CONTINUE TO MONITOR.
[2018-10-28 05:24] VITALS: BP 139/69
--- NOTE | 2018-10-28 07:00 | NUR ---
RECEIVED REPORT FROM NURSE PEPE, PATIENT RESTING IN BED, C/O PAIN PS 9/10 ON BUTTOCKS, FACIAL GRIMACE NOTED, WITH DOUBLE LUMEN PICC ON RA, ONGOING IV D5 1/2 NACL IL @30CC/HR. WITH COYNE CATHETER DARAING REEMA COLORED URINE. CALL LIGHT WITHIN REACH.
[2018-10-28 08:00] VITALS: BP 135/55
--- NOTE | 2018-10-28 09:55 | NUR ---
PATIENT WAS C/O ITCHINESS ON BOTH LEGS, CALLED DR. MARRERO AND ORDERED BENADRYL 25MG PO EVERY 6 HOURS FOR ITCHINESS AND CALAMINE LOTION APPLY TO BOTH LEGS BID.REQUEST SENT TO PHARMACY
--- NOTE | 2018-10-28 12:00 | NUR ---
PATIENT IN BED DOING CROSSWORD, STATED PRN PAIN MEDICATION EFFECTIVE, PAIN TOLERABLE AT THIS TIME, REMAINS ON WOUND VAC, CALL LIGHT AT REACH
--- NOTE | 2018-10-28 13:46 | NUR ---
Pt reported no changes, had pain meds recently. AROM ex performed to BUE, A/AAROM to RLE, L ankle, L knee not ranged due to pain. Pt total assist for bed mobility. Pt left with nursing and family member in room.
[2018-10-28 15:41] VITALS: BP 117/49
--- NOTE | 2018-10-28 16:00 | NUR ---
PATIENT RESTING IN BED, C/O PAIN ON BUTTOCKS, PRN HYDROMORPHONE GIVEN AT 1610, REPOSITIONED, CURRENTLY DOING CROSSWORD, FAMILY AT BEDSIDE CALL LIGHT WITHIN REACH
[2018-10-28 19:10] VITALS: BP 128/64
--- NOTE | 2018-10-28 19:39 | NUR ---
Report recieved from Apoorva Lantigua.
--- NOTE | 2018-10-28 20:00 | NUR ---
PT RESTING IN BED WITH EYES CLOSED. NO DISTRESS OR PAIN NOTED.WOUND VAC CONNECTED AND RUNNING WITH NO DIFFICULTY.DORETHA FARRELL WITH REEMA URINE. SCDS ATTACTHED. ROSALBA PIC PATENT. PT ON AIR MATTRESS AND WILL BE TURNT Q2HRS. BED IN LOWST POSITION. CALL LIGHT WITH IN REACH. WILL CONTINUE TO MONITOR.
--- NOTE | 2018-10-28 23:00 | NUR ---
DR MARRERO CALLED TO RESTART DILUADID. ORDERS RECIEVED.
--- NOTE | 2018-10-29 04:00 | NUR ---
pt resting with eyes closed. labs taken from [facility]. no swelling noted. wound vac in place. pt being turn q2hr. bed in lowest position. call light in reach. will continue to monitor.
[2018-10-29 04:10] VITALS: BP 139/77
[2018-10-29 05:39] LABS: HEMATOCRIT 27.6 % (37.0-47.0); HEMOGLOBIN 9.3 g/dl (12.0-16.0); MEAN CELL VOLUME 91.4 fL CALC (80.0-100.0); MEAN CORPUSCULAR HGB 30.8 pG CALC (26.0-32.0); MEAN CORPUSCULAR HGB CONC 33.7 g/L CALC (32.0-36.0); RED BLOOD COUNT 3.02 mill/uL (4.20-5.60); RED CELL DISTRI WIDTH 21.1 % (11.5-15.5)
[2018-10-29 06:07] LABS: ANION GAP 15 (6-22 (CALC)); BUN 13 mg/dL (8-23); BUN/CREATININE RATIO 22 (12-20 (CALC)); CARBON DIOXIDE 24 mmol/l (22-30); CHLORIDE 102 mmol/l (95-108); CREATININE 0.6 mg/dL (0.5-1.0); GFR > 60 ML/MIN (>=60 (CALC)); GFR FOR AFR.AMER. > 60 ML/MIN (>=60 (CALC)); SODIUM 136 mmol/l (137-146)
--- NOTE | 2018-10-29 07:15 | NUR ---
PT REPORT RECIEVED FROM Molly PALACIORN. PT SLEEPING. NO S/S OF DISTRESS. CALL LIGHT IN REACH. WILL CONTINUE TO MONITOR.
[2018-10-29 08:10] VITALS: BP 119/53
--- NOTE | 2018-10-29 08:10 | NUR ---
PT A/O X3. SPEECH IS CLEAR. RESP EVEN AND UNLABORED. LUNG SOUNDS CLEAR. BOWEL SOUNDS ACTIVE X4. STRONG RADIAL AND PEDAL PULSES. PICC ROSALBA D5 1/2 NS @30. SITE APPEARS HEALTHY. COYNE DRAINING CLEAR YELLOW URINE TO GRAVITY. PT C/O LEG PAIN 10 OUT OF 10. MEDICATED W/ DILAUDID 1 MG IV. REPOSITIONED FOR COMFORT. WOUND VAC TO BUTTOCK IN PLACE. AIR MATTRESS ON. POC DISCUSSED. SAFETY PRECAUTIONS IN PLACE. CONTACT PRECAUTIONS. CALL LIGHT IN REACH. WILL CONTINUE TO MONITOR.
--- NOTE | 2018-10-29 11:20 | NUR ---
Pt seen this am for bedside ex. She was awake with son and brother in visiting. AROM ex to BUE and gentle manual resist to LUE. A/AAROM to RLE and L ankle, pt was able to IR L hip today but knee not ranged. Pt encouraged to do isometric gluts and quads. Pt left in bed with call bello in reach, family members still present.
--- NOTE | 2018-10-29 12:31 | NUR ---
PT C/O ACHING PAIN TO BUTTOCK. 7 OUT OF 10. MEDICATED W/ 1MG DILAUDID IV. REPOSITIONED FOR COMFORT. PT DENIES ANY FURTHER NEEDS. COYNE DRAINING YELLOW URINE FREELY. CALL LIGHT IN REACH. WILL CONTINUE TO MONITOR.
[2018-10-29 15:50] VITALS: BP 119/65
--- NOTE | 2018-10-29 16:00 | NUR ---
PT SLEEPING PEACEFULLY IN BED. NO C/O PAIN OR NEEDS. CALL LIGHT IN REACH. WILL CONTINUE TO MONITOR.
[2018-10-29] MEDS ORDERED: CEFEPIME2 G2 IV (17:55)
--- NOTE | 2018-10-29 19:00 | NUR ---
REPORT RECIEVED KELLI HELM LPN. PT RESTINGIN BED WITH EYES CLOSED. NO DISTRESS NOTED. POC DISCUSSED. PT DISCHARGED DECLINED D/T THE NEED OF BARIACTRIC BED. WOUND VAC IN PLACE TO WOUND ON COCCYX. NO DRAINAGE NOTED. SCDS IN PLACE. ROSALBA POON. NO S/S OF INFECTION. BED IN LOWEST POSITION. CALL LIGHT IN REACH WILL MONITOR.
[2018-10-29 19:15] VITALS: BP 133/69
[2018-10-30 03:55] VITALS: BP 129/77
[2018-10-30 08:15] VITALS: BP 141/64
--- NOTE | 2018-10-30 08:19 | NUR ---
REPORT RECEIVED FROM PETE GUNN; DR MARRERO AT BEDSIDE; PT LAYING IN BED AWAKE; RESP EVEN AND UNLABORED AT ROOM AIR; PICC ROSALBA D5 1/2 @30CC/HR; SITE APPEARS HEALTHY; COYNE DRAINING TO GRAVITY, CLEAR, YELLOW URINE; LEG STRAP SECURE; WOUND VAC TO COCCYX INTACT; SCD TO BILAT LEGS; CALL OSORIO IN REACH; SAFETY PRECAUTION REINFORCE;
[2018-10-30] MEDS ORDERED: RESTORIL15 MG PO (08:33)
[2018-10-30] MEDS ORDERED: BACTRIM DS1 TAB PO (08:33)
--- NOTE | 2018-10-30 09:30 | NUR ---
DR MCCALL REMOVED WOUND VAC AND DID DRESSING CHANGE TO BUTTOCKS; PICTURE OBTAINED; PT TOLERATED WELL;
--- NOTE | 2018-10-30 10:31 | NUR ---
PT LEFT VIA GLORY MARINIT TO STRETCHER; MEDICATED WITH DILAUDID 9:55 AND TYLENOL 10:31 PER PT REQUEST; ALL BELONGINGS SENT WITH PT.
--- NOTE | 2018-10-30 11:22 | NUR ---
REPORT GIVEN TO LUIS A [facility]
--- NOTE | 2018-10-30 12:39 | NUR ---
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 P-U REFFERENCE # [id number], AND IT WILL BE HERE TO GET IT IN THE NEXT 24 HOURS. ALSO THE AIR MATTRESS (CÉSAR) WAS CALLED RE: AIR MATTRESS. THANK YOU.
== END 2018-10-30 10:42 | DRG 593 ==
LOC: ED 15:29 → ED-I 16:48 → ED 18:55 → MS2 18:56
PROVIDERS: Emergency Medicine; ADMIT Internal Medicine Geriatric Medicine; ATTEND Internal Medicine Geriatric Medicine
PROC: 0T9B70Z Drainage of Bladder with Drainage Device, Via Natural or Artificial Opening (ICD-10-PCS; 2018-10-23)
PROC: 2W15X6Z Compression of Back using Pressure Dressing (ICD-10-PCS; 2018-10-23)
PROC: 02HV33Z Insertion of Infusion Device into Superior Vena Cava, Percutaneous Approach (ICD-10-PCS; principal; 2018-10-24)
PROC: B518ZZA Fluoroscopy of Superior Vena Cava, Guidance (ICD-10-PCS; 2018-10-24)
DX: L89.154 Pressure ulcer of sacral region, stage 4 (principal); Z68.43 Body mass index [BMI] 50.0-59.9, adult; J44.1 Chronic obstructive pulmonary disease with (acute) exacerbation; J96.10 Chronic respiratory failure, unspecified whether with hypoxia or hypercapnia; E46 Unspecified protein-calorie malnutrition; I69.954 Hemiplegia and hemiparesis following unspecified cerebrovascular disease affecting left non-dominant side; I11.0 Hypertensive heart disease with heart failure; I50.9 Heart failure, unspecified; D64.9 Anemia, unspecified; E66.01 Morbid (severe) obesity due to excess calories; I25.10 Atherosclerotic heart disease of native coronary artery without angina pectoris; M19.90 Unspecified osteoarthritis, unspecified site; G47.30 Sleep apnea, unspecified; K21.9 Gastro-esophageal reflux disease without esophagitis; E03.9 Hypothyroidism, unspecified; B96.5 Pseudomonas (aeruginosa) (mallei) (pseudomallei) as the cause of diseases classified elsewhere; Z74.01 Bed confinement status; Z22.322 Carrier or suspected carrier of Methicillin resistant Staphylococcus aureus
CPT/HCPCS: G0378; J0131; J0692

== ENCOUNTER 2018-12-17 13:36 | Outpatient (RCR) | payer MEDICARE, MEDICAID ==
[~2018-12-17 13:36] MED LIST changes: +BACTRIM DS1 TAB PO; +CEFEPIME2 G2 IV; +RESTORIL15 MG PO
== END 2018-12-17 16:00 | disposition home or self-care (01) ==
LOC: OPWC 13:36
PROVIDERS: ATTEND Surgery
DX: L89.154 Pressure ulcer of sacral region, stage 4 (principal); M62.81 Muscle weakness (generalized); E11.22 Type 2 diabetes mellitus with diabetic chronic kidney disease; E66.9 Obesity, unspecified; E44.0 Moderate protein-calorie malnutrition
CPT/HCPCS: A6021; A6212; A6214